=== PATIENT | female | born 1950 ===

== ENCOUNTER 2016-10-30 09:24 | Emergency (ER) | payer MEDICARE, OTHER ==
[2016-10-30 09:24] VITALS: BMI 23.8
[2016-10-30 09:48] VITALS: BP 140/70; PULSE 65; RESP 20; TEMP 97; O2SAT 98
[2016-10-30] MEDS ORDERED: Lidocaine 5% Patch TD STA (09:56)
--- NOTE | 2016-10-30 10:07 | ED PDOC ---
Upper Extremity Pain/Injury Time Seen by Provider: 10/30/16 09:49 Chief Complaint (Nursing): Upper Extremity Problem/Injury Chief Complaint (Provider): right shoulder pain History Per: Patient History/Exam Limitations: no limitations Onset/Duration Of Symptoms: Days (x 2) Additional Complaint(s): Anya Sanchez is a 66 year old female, with a previous medical history of thyroid cancer, neck cancer and tendonitis, who presents to the ED with complaints of atraumatic right shoulder pain ongoing for 2 days. Patient reports pain is sharp and worse with movement. Patient reports to taking naprosyn and glucosamine which provided no relief.She states tendonitis causes her to experience frequent joint and muscle pain but denies seeing orthopedics. PMD: none provided Past Medical History Reviewed: Historical Data, Nursing Documentation, Vital Signs Vital Signs: Last Vital Signs Temp 97 F L 10/30/16 09:45 Pulse 65 10/30/16 09:45 Resp 20 10/30/16 09:45 BP 140/70 10/30/16 09:45 Pulse Ox 98 10/30/16 09:45 - Medical History PMH: Anemia, Anxiety, Arthritis, HTN, Hypercholesterolemia, Hyperthyroidism, Hypothyroidism (TOTAL THYROIDECTOMY) Denies: Colonic Polyps, Fractures, TIA - Surgical History Surgical History: Appendectomy, Endoscopy (10 YEARS AGO) - Family History Family History: States: Unknown Family Hx - Immunization History Hx Tetanus Toxoid Vaccination: No Hx Influenza Vaccination: Yes (2015) Hx Pneumococcal Vaccination: No - Home Medications Home Medications: Ambulatory Orders Medication Instructions Recorded oxyCODONE/Acetaminophen [Percocet 1 tab PO BID PRN #10 tab 06/10/15 5/325 mg Tab] ALPRAZolam [Xanax] 1 mg PO TID PRN 06/14/16 Calcitriol [Rocaltrol] 0.5 mcg PO DAILY 06/14/16 Levothyroxine [Synthroid] 125 mcg PO DAILY 06/14/16 Lidocaine 5% [Lidoderm] 1 ea TD DAILY #5 patch 10/30/16 traMADol [Ultram] 50 mg PO Q6 PRN #20 tab 10/30/16 - Allergies Allergies/Adverse Reactions: Allergies Allergy/AdvReac Type Severity Reaction Status Date / Time No Known Allergies Allergy Verified 10/30/16 09:45 Review of Systems ROS Statement: Except As Marked, All Systems Reviewed And Found Negative Musculoskeletal: Positive for: Shoulder Pain Physical Exam - Reviewed Nursing Documentation Reviewed: Yes Vital Signs Reviewed: Yes - Physical Exam Appears: Positive for: Well, Non-toxic, No Acute Distress Head Exam: Positive for: ATRAUMATIC, NORMAL INSPECTION, NORMOCEPHALIC Cardiovascular/Chest: Positive for: Regular Rate, Rhythm Respiratory: Positive for: CNT, Normal Breath Sounds Extremity: Positive for: Tenderness (anterior right shoulder ), Capillary Refill (< 2 seconds ). Negative for: Normal ROM (loss of active ROM in the right shoulder ), Deformity, Other (redness ) Neurologic/Psych: Positive for: Alert, Oriented - Laboratory Results Result Diagrams: 10/30/16 10:30 10/30/16 10:30 - ECG O2 Sat by Pulse Oximetry: 98 Medical Decision Making Medical Decision Making: Initial Impression: arthralgia r/o hypercalcemia Initial Plan: * labs * lidocaine 5 % * toradol 30 mg IV * x-ray right shoulder * reevaluation XR no fracture on my review of XRay Improved on re-eval, pain better. Sling applied by , followup ortho for definitive treatment. Scribe Attestation: Documented by Sandy Hall, acting as a scribe for Lennox Mason DO. Provider Scribe Attestation: All medical record entries made by the Scribe were at my direction and personally dictated by me. I have reviewed the chart and agree that the record accurately reflects my personal performance of the history, physical exam, medical decision making, and the department course for this patient. I have also personally directed, reviewed, and agree with the discharge instructions and disposition. Disposition - Clinical Impression Clinical Impression: Shoulder pain, acute - Patient ED Disposition Is Patient to be Admitted: No Counseled Patient/Family Regarding: Studies Performed, Diagnosis, Need For Followup, Rx Given - Disposition Referrals: Nanette Weathers MD [Staff Provider] - Disposition: Routine/Home Disposition Time: 11:25 Condition: STABLE Additional Instructions: Followup with orthopedics for further testing and treatment. Wear sling for 3 days only. Use tramadol as needed for pain every 4-6hrs. Prescriptions: Lidocaine 5% [Lidoderm] 1 ea TD DAILY #5 patch traMADol [Ultram] 50 mg PO Q6 PRN #20 tab PRN Reason: Pain, Moderate (4-7) Instructions: Arthralgia (ED), Shoulder Pain (ED)
[2016-10-30 10:53] LABS: BASO # 0.1 K/uL (0.0-0.2); BASO % 1.3 % (0.0-2.0); EOS # 0.4 K/uL (0.0-0.7); EOS % 4.1 % (0.0-4.0); HEMATOCRIT 38.3 % (34.0-47.0); LYMPH # 1.8 K/uL (1.0-4.3); MEAN CELL VOLUME 90.6 fl (81.0-99.0); MEAN CORPUSCULAR HEMOGLOBIN 30.5 pg (27.0-31.0); MEAN CORPUSCULAR HGB CONC 33.7 g/dL (33.0-37.0); MEAN PLATELET VOLUME 8.2 fl (7.2-11.7); MONO # 0.6 K/uL (0.0-0.8); MONO % 5.6 % (0.0-10.0); NEUT # 7.4 K/uL (1.8-7.0); NRBC % 0.1 % (0.0-0.0); RED CELL DISTRIBUTION WIDTH 14.1 % (11.5-14.5); WHITE BLOOD COUNT 10.3 K/uL (4.8-10.8)
--- NOTE | 2016-10-30 11:03 | RAD ---
PROCEDURE: Radiographs of the Right Shoulder HISTORY: R shoulder pain COMPARISON: Right shoulder radiographs performed 02/28/16 FINDINGS: BONES: No acute displaced fracture. The distal clavicle and underlying ribs appear intact. JOINTS: No acute dislocation. SOFT TISSUES: Soft tissues appear unremarkable. No evidence of radiopaque foreign body. IMPRESSION: No acute displaced fracture or dislocation evident. If symptoms persist or if there is continued clinical concern, x-ray follow-up in 7-10 days should be considered.
[2016-10-30 11:56] LABS: BLOOD UREA NITROGEN 23 mg/dl (7-17); CALCIUM 8.7 mg/dL (8.4-10.2); CARBON DIOXIDE 24 mmol/L (22-30); CHLORIDE 106 mmol/L (98-107); GFR AFRICAN-AMERICAN > 60; GLUCOSE,RANDOM 88 mg/dL (65-105); POTASSIUM 4.1 MMOL/L (3.6-5.0); SODIUM 141 mmol/l (132-148)
== END 2016-10-30 12:40 | disposition home or self-care (01) ==
LOC: H.ER 09:24
DX: M25.511 Pain in right shoulder (principal); I10 Essential (primary) hypertension; E89.0 Postprocedural hypothyroidism
CPT/HCPCS: 73030; 80048; 85025; 96374; 99282; J1885

== ENCOUNTER 2018-04-16 09:55 | Emergency (ER) | payer MEDICARE, OTHER ==
[2018-04-16 09:55] VITALS: BMI 23.8
--- NOTE | 2018-04-16 11:35 | RAD ---
Date of service: 04/16/2018 PROCEDURE: Right Wrist Radiographs. HISTORY: R wrist pain COMPARISON: None. FINDINGS: BONES: Normal. No fracture. JOINTS: Normal. No dislocation. SOFT TISSUES: Normal. OTHER FINDINGS: None. IMPRESSION: Normal right wrist radiographs.
[2018-04-16 12:45] VITALS: BP 113/68; PULSE 80; RESP 18; TEMP 98.1; O2SAT 99
--- NOTE | 2018-04-16 12:57 | ED PDOC ---
Upper Extremity Pain/Injury Time Seen by Provider: 04/16/18 10:35 Chief Complaint (Nursing): Upper Extremity Problem/Injury Chief Complaint (Provider): right wrist and thumb pain History Per: Patient History/Exam Limitations: no limitations Onset/Duration Of Symptoms: Days (2), Sudden Onset Current Symptoms Are (Timing): Still Present Quality: Sharp Severity: Moderate Exacerbating Factor(s): Strenuous Use Of Affected Area, Movement Additional Complaint(s): 67yo female c/o R wrist and thumb pain, states has known history of tendinitis and this feels similar. Notes tingling to thumb worse with movement. Denies injury or trauma. Denies overuse but picks up grandchild frequently. Denies wea kness or elbow/shoulder pain. Past Medical History Reviewed: Historical Data, Nursing Documentation, Vital Signs Vital Signs: Last Vital Signs Temp 98.1 F 04/16/18 12:44 Pulse 80 04/16/18 12:44 Resp 18 04/16/18 12:44 BP 113/68 04/16/18 12:44 Pulse Ox 99 04/16/18 12:44 - Medical History PMH: Anemia, Anxiety, Arthritis, HTN, Hypercholesterolemia, Hyperthyroidism, Hypothyroidism (TOTAL THYROIDECTOMY) Denies: Colonic Polyps, Fractures, TIA - Surgical History Surgical History: Appendectomy, Endoscopy (10 YEARS AGO) - Family History Family History: States: Unknown Family Hx - Immunization History Hx Tetanus Toxoid Vaccination: No Hx Influenza Vaccination: Yes (2015) Hx Pneumococcal Vaccination: No - Home Medications Home Medications: Ambulatory Orders Medication Instructions Recorded oxyCODONE/Acetaminophen [Percocet 1 tab PO BID PRN #10 tab 06/10/15 5/325 mg Tab] ALPRAZolam [Xanax] 1 mg PO TID PRN 06/14/16 Calcitriol [Rocaltrol] 0.5 mcg PO DAILY 06/14/16 Levothyroxine [Synthroid] 125 mcg PO DAILY 06/14/16 Lidocaine 5% [Lidoderm] 1 ea TD DAILY #5 patch 10/30/16 traMADol [Ultram] 50 mg PO Q6 PRN #20 tab 10/30/16 Ibuprofen [Ibu] 400 mg PO Q6 PRN #12 tablet 04/16/18 - Allergies Allergies/Adverse Reactions: Allergies Allergy/AdvReac Type Severity Reaction Status Date / Time No Known Allergies Allergy Verified 10/30/16 09:45 Review of Systems ROS Statement: Except As Marked, All Systems Reviewed And Found Negative Constitutional: Negative for: Fever Cardiovascular: Negative for: Chest Pain Respiratory: Negative for: Shortness of Breath Gastrointestinal: Negative for: Abdominal Pain Genitourinary Female: Negative for: Dysuria Musculoskeletal: Positive for: Hand Pain. Negative for: Neck Pain, Shoulder Pain, Arm Pain, Back Pain, Leg Pain, Foot Pain Skin: Negative for: Rash, Lesions Neurological: Negative for: Headache, Dizziness Physical Exam - Reviewed Nursing Documentation Reviewed: Yes Vital Signs Reviewed: Yes - Physical Exam Appears: Positive for: Well, Non-toxic Head Exam: Positive for: ATRAUMATIC Skin: Positive for: Normal Color, Warm, Dry Eye Exam: Positive for: Normal appearance Neck: Positive for: Painless ROM Cardiovascular/Chest: Positive for: Regular Rate, Rhythm Pulses-Radial (L): 3+/4+ Pulses-Radial (R): 3+/4+ Extremity: Positive for: Other (+tinnel test and tran, no deformity, edema or skin changes, normal cap refill) - ECG O2 Sat by Pulse Oximetry: 99 - Radiology X-Ray: Read By Radiologist X-Ray Interpretation: Other (neg fracture) Medical Decision Making Medical Decision Making: improved after toradol, clinically appears as carpal tunnel, possible dequervains, followup PMD, placed in wrist splint and Rx motrin for pain/ patient has had issue several times before she states, no new symptoms. Disposition - Clinical Impression Clinical Impression: Carpal tunnel syndrome of right wrist - Patient ED Disposition Is Patient to be Admitted: No Counseled Patient/Family Regarding: Studies Performed, Diagnosis, Need For Followup, Rx Given - Disposition Referrals: Edd Hoffmann MD [Primary Care Provider] - Disposition: Routine/Home Disposition Time: 12:45 Condition: STABLE Additional Instructions: See PMD for possible referral to orthopedist for evaluation of ongoing wrist and hand pain. Wear splint for 5 days. Use motrin for pain. Avoid overuse of hand/wrist/. Prescriptions: Ibuprofen [Ibu] 400 mg PO Q6 PRN #12 tablet PRN Reason: Pain, Moderate (4-7) Instructions: Carpal Tunnel Syndrome Forms: [employer] (Norwegian)
== END 2018-04-16 13:02 | disposition home or self-care (01) ==
LOC: H.ER 09:55 → SUPCPDRO 09:55 → H.ER 13:02
DX: G56.01 Carpal tunnel syndrome, right upper limb (principal); I10 Essential (primary) hypertension; E05.90 Thyrotoxicosis, unspecified without thyrotoxic crisis or storm; E03.9 Hypothyroidism, unspecified
CPT/HCPCS: 73110; 96372; 99284; J1885